=== PATIENT | female | born 1975 | race Caucasian/White ===

== ENCOUNTER → 2019-07-19 | Outpatient (CLI) | payer OTHER ==
--- NOTE | 2019-07-19 14:54 | MM ---
Reason for exam: clinical finding. Last mammogram was performed 3 years and 3 months ago. History: Family history of breast cancer in mother at age 58. Took hormonal contraceptives for 6 years. Indicated problem(s): palpable abnormality in the left breast. Physical Findings: Nurse Summary: 2 x 1.5cm nodule in the left breast at 12 o'clock and a 1 x 1.5cm nodule in the left breast at 1 o'clock (nurse ts). MG 3D Diag Mammo W/Cad JITENDRA Bilateral CC and MLO view(s) were taken. Prior study comparison: April 17, 2016, mammogram. The breast tissue is extremely dense which could obscure a lesion on mammography. There are two oval circumscribed masses on the left in the upper outer quadrant deep to the palpable BB markers. A spiculated right upper outer quadrant 5mm mass is seen 7-9cm from nipple. These results were verbally communicated with the patient and result sheet given to the patient on 07/19/19. ASSESSMENT: Incomplete: need additional imaging evaluation, BI-RAD 0 RECOMMENDATION: Ultrasound of both breasts. (right upper outer quadrant, left upper outer quadrant)
--- NOTE | 2019-07-19 14:59 | USB ---
Reason for exam: additional evaluation requested from abnormal screening. History: Family history of breast cancer in mother at age 58. Took hormonal contraceptives for 6 years. US Breast Limited BILAT Right limited breast ultrasound including focal area of concern, retroareolar and axilla demonstrates a 1.7 x 1.0 x 1.3cm cystic lesion at 9 o'clock, a 0.4 x 0.3 x 0.4cm cystic lesion at 8:30, a 0.6 x 0.3 x 0.6cm solid lesion at 11 o'clock, biopsy recommended, correlate with post biopsy mammogram for marker placement, and a 1.3 x 0.7 x 0.7cm solid lesion at 11 o'clock, vascularity, biopsy recommended. Left limited breast ultrasound including focal area of concern, retroareolar and axilla demonstrates a 3.1 x 2.3 x 2.3cm cystic lesion at 12 o'clock, a 0.3 x 0.3 x 0.3cm cystic lesion too small to characterize at 1 o'clock and a 1.7 x 1.3 x 1.9cm mixed, cystic lesion at 2 o'clock. These results were verbally communicated with the patient and result sheet given to the patient on 07/19/19. ASSESSMENT: Suspicious, BI-RAD 4 RECOMMENDATION: Ultrasound core biopsy of the right breast. (x 2) Called Dr. Smiley with mammographic findings and has scheduled an appointment for the patient for 09/13/19 at 8:[address] Reyes. Biopsy scheduled for 08/17/19 at 10:00. PRELIMINARY REPORT CALLED AND FAXED TO DR. REYES ON 07/19/19.
== END | disposition home or self-care (01) ==
LOC: RADMAMWWP 07:26
PROVIDERS: ATTEND Family Medicine
DX: N63.23 Unspecified lump in the left breast, lower outer quadrant (principal); R92.8 Other abnormal and inconclusive findings on diagnostic imaging of breast
CPT/HCPCS: 77062; 77066

== ENCOUNTER → 2022-04-09 | Outpatient (CLI) | payer BC ==
--- NOTE | 2022-04-10 10:24 | US ---
EXAMINATION TYPE: US pelvic complete DATE OF EXAM: 04/09/2022 COMPARISON: NONE CLINICAL HISTORY: N92.4 Metorrhagia D64.9 ANEMIA, UNSPECIFIED. Fibroids TECHNIQUE: Transabdominal (TA). EXAM MEASUREMENTS: Uterus: 16.1 x 7.7 x 12.6 cm Endometrial Stripe: 4.4 cm Right Ovary: 3.9 x 2.1 x 3.8 cm 1. Uterus: Anteverted Multiple fibroids seen largest measuring 10.4 x 7.7 x 9.4 cm 2. Endometrium: hypoechoic area seen within 2.6 x 2.1 x 2.9 cm. 3. Right Ovary: wnl 4. Left Ovary: Obscured by overlying bowel gas 5. Bilateral Adnexa: wnl 6. Posterior cul-de-sac: wnl IMPRESSION: 1. Hypoechoic collection within the fundus of the uterus within the endometrial canal measuring appro ximately 2.5 cm in diameter. Recommend additional evaluation. 2. Multiple uterine fibroids. The largest in the posterior fundus measures 10 cm.
== END | disposition home or self-care (01) ==
LOC: RADUSWWP 15:44
PROVIDERS: ATTEND Obstetrics & Gynecology Obstetrics
DX: D25.9 Leiomyoma of uterus, unspecified (principal); D64.9 Anemia, unspecified
CPT/HCPCS: 76856